=== PATIENT | male | born 1995 | race Caucasian/White ===

== ENCOUNTER 2018-01-13 12:10 | Inpatient (IN) | payer OTHER ==
[~2018-01-13] VITALS: Ht 172.7 cm; Wt 65.9 kg
[~2018-01-13 12:10] MED LIST: ATARAX,VISTARIL50 MG PO; CARBIDOPA/LEVOD1 TA1 PO; VITAMIN B-11 TAB PO; ZOFRAN 4 MG ED2 TAB PO
[2018-01-13 13:00] VITALS: BP 110/56
[2018-01-13 14:01] LABS: BASO % 0.7 % (0.0-1.0); EOS # 0.1 10*3/uL (0.0-0.4); EOS % 1.6 % (1.0-4.0); HEMATOCRIT 44.2 % (42.0-52.0); HEMOGLOBIN 14.9 g/dl (14.0-18.0); LYMPH # 1.2 10*3/uL (1.3-4.4); LYMPH % 20.4 % (27.0-41.0); MEAN CELL VOLUME 90.4 fl (80.0-94.0); MEAN CORPUSCULAR HGB 30.5 pg (27.0-31.0); MEAN CORPUSCULAR HGB CONC 33.7 g/dl (33.0-37.0); MEAN PLATELET VOLUME 11.5 fl (9.6-12.3); MONO # 0.3 10*3/uL (0.1-1.0); MONO % 4.9 % (3.0-9.0); NEUT # 4.4 10*3/uL (2.3-7.9); NEUT % 71.9 % (47.0-73.0); PLATELET COUNT AUTOMATED 193 10*3/uL (130-400); RED BLOOD COUNT 4.89 10*6/uL (4.50-5.90); RED CELL DISTRI WIDTH 12.1 % (0-14.5); WHITE BLOOD COUNT 6.1 10*3/uL (4.8-10.8)
[2018-01-13 14:06] LABS: URINE AMPHETAMINES < 1000 (1000ng/ml); URINE BARBITURATES < 200 (200ng/ml); URINE BENZODIAZEPINES < 200 (200ng/ml); URINE CANNABINOIDS (THC) < 50 (50ng/ml); URINE COCAINE > 300 (300ng/ml); URINE METHADONE < 300 (300ng/ml); URINE OPIATES > 300 (300ng/ml)
[2018-01-13 14:08] LABS: URINE PHENCYCLIDINE < 25 (25ng/ml)
[2018-01-13 14:11] LABS: ALBUMIN 4.4 gm/dl (3.1-4.5); ALKALINE PHOSPHATASE 79 U/L (45-117); BUN 9 mg/dl (7-24); CHLORIDE 106 mmol/L (98-107); POTASSIUM 3.8 mmol/L (3.5-5.1); SGOT/AST 28 IU/L (3-35); SGPT/ALT 59 U/L (12-78); SODIUM 141 mmol/L (136-145); TOTAL PROTEIN 8.8 gm/dL (6.4-8.2)
[2018-01-13 14:18] LABS: ETHYL ALCOHOL < 3.0 mg/dl (<3)
[2018-01-13 16:00] VITALS: BP 106/52
[2018-01-13 20:00] VITALS: BP 112/61
[2018-01-13 23:55] VITALS: BP 110/62
[2018-01-14 02:15] VITALS: BP 118/64
[2018-01-14 08:00] VITALS: BP 94/44
[2018-01-14 12:00] VITALS: BP 96/50
[2018-01-14 16:00] VITALS: BP 96/55
[2018-01-14 20:00] VITALS: BP 98/52
[2018-01-15] VITALS: BP 101/54
[2018-01-15 08:00] VITALS: BP 103/58
== END 2018-01-15 14:01 | disposition left against medical advice (07) | DRG 894 ==
LOC: 4E 12:10
PROVIDERS: Internal Medicine
DX: F11.23 Opioid dependence with withdrawal (principal); I95.9 Hypotension, unspecified; R17 Unspecified jaundice; R68.83 Chills (without fever); F10.230 Alcohol dependence with withdrawal, uncomplicated; F41.9 Anxiety disorder, unspecified; G25.81 Restless legs syndrome; Z71.6 Tobacco abuse counseling; Z72.0 Tobacco use; F14.10 Cocaine abuse, uncomplicated; B19.20 Unspecified viral hepatitis C without hepatic coma; F31.9 Bipolar disorder, unspecified; Z53.21 Procedure and treatment not carried out due to patient leaving prior to being seen by health care provider; Z79.899 Other long term (current) drug therapy; Z81.8 Family history of other mental and behavioral disorders

== ENCOUNTER 2019-04-13 08:51 | Inpatient (IN) | payer OTHER ==
[~2019-04-13] VITALS: Ht 172.7 cm; Wt 76.7 kg
[2019-04-13 10:00] VITALS: BP 116/74
[2019-04-13 10:34] LABS: URINE AMPHETAMINES < 1000 (1000ng/ml); URINE BARBITURATES < 200 (200ng/ml); URINE BENZODIAZEPINES < 200 (200ng/ml); URINE CANNABINOIDS (THC) < 50 (50ng/ml); URINE COCAINE < 300 (300ng/ml); URINE METHADONE < 300 (300ng/ml); URINE OPIATES < 300 (300ng/ml)
--- NOTE | 2019-04-13 10:36 | NUR ---
PATIENT MEETS [facility]. CINA=17, CIWA=21. PATIENT WANTS TO FOLLOW UP WITH [facility] FOR HIS AFTERCARE PLAN. JENARO WOODRUFF B.A. BACON SLICER
[2019-04-13 10:38] LABS: BILIRUBIN NEGATIVE (NEGATIVE); BLOOD NEGATIVE (NEGATIVE); CLARITY SL CLOUDY (CLEAR); COLOR YELLOW (YELLOW); GLUCOSE NEGATIVE (NEGATIVE); KETONE NEGATIVE (NEGATIVE); LEUKO ESTERASE NEGATIVE (NEGATIVE); NITRITE NEGATIVE (NEGATIVE); PH 8.5 (5.0-9.0); SPECIFIC GRAVITY 1.015 (1.005-1.030)
[2019-04-13 10:42] LABS: URINE PHENCYCLIDINE < 25 (25ng/ml)
[2019-04-13 11:03] LABS: MUCOUS 1+; WBC 0-2 wbc/hpf (0-5)
--- NOTE | 2019-04-13 11:08 | NUR ---
PT REQUESTING HIV TESTING
--- NOTE | 2019-04-13 11:23 | NUR ---
MESSAGE LEFT WIOTH DR MCKINNEY THAT PATIENT IS ADMITTED, MEDS DONE, URINE DRUG NEGATIVE
--- NOTE | 2019-04-13 11:59 | NUR ---
INFORMED THAT PATIENT IS REQUESTED ANXIETY MEDICATION AT THIS TIME.
[2019-04-13 12:00] VITALS: BP 120/62
--- NOTE | 2019-04-13 12:37 | NUR ---
EXPLAINED THAT FENTANYL WOULDN'T SHOW UP ON DRUG SCREEN AND THAT YES WE BELIEVED HE TOOK IT. EXPLAINED THAT DR HADDAD IS WORKING ON HIS ORDERS.
--- NOTE | 2019-04-13 12:50 | NUR ---
ROUTINE MEDS STARTED & PRN MOTRIN & ZOFRAN GIVEN. PT RESTLESS & FEELING LIKE HE COULDN'T TAKE IT ANY LONGER. DR HADDAD AWARE OF AMA POTENTIAL. DISCUSSED WITHPT MVI BAG
--- NOTE | 2019-04-13 13:15 | NUR ---
LABS DRAWN FROM HEP LOCK
[2019-04-13 13:26] LABS: BASO % 0.3 % (0.0-1.0); EOS % 0.7 % (1.0-4.0); HEMATOCRIT 43.4 % (42.0-52.0); HEMOGLOBIN 14.9 g/dl (14.0-18.0); LYMPH # 1.4 10*3/uL (1.3-4.4); LYMPH % 24.1 % (27.0-41.0); MEAN CELL VOLUME 90.4 fl (80.0-94.0); MEAN CORPUSCULAR HGB CONC 34.3 g/dl (33.0-37.0); MEAN PLATELET VOLUME 11.4 fl (9.6-12.3); MONO # 0.4 10*3/uL (0.1-1.0); MONO % 6.1 % (3.0-9.0); NEUT # 4.1 10*3/uL (2.3-7.9); NEUT % 68.8 % (47.0-73.0); PLATELET COUNT AUTOMATED 170 10*3/uL (130-400); RED CELL DISTRI WIDTH 12.9 % (0-14.5); WHITE BLOOD COUNT 5.9 10*3/uL (4.8-10.8)
[2019-04-13 13:36] LABS: INTERNATIONAL NORM RATIO 0.9 (2.0-3.5)
[2019-04-13 13:44] LABS: ALBUMIN 4.2 gm/dl (3.1-4.5); ALKALINE PHOSPHATASE 59 U/L (45-117); BUN 8 mg/dl (7-24); CHLORIDE 103 mmol/L (98-107); CREATININE 0.73 mg/dL (0.70-1.30); POTASSIUM 4.1 mmol/L (3.5-5.1); SGOT/AST 39 IU/L (3-35); SGPT/ALT 82 U/L (12-78); SODIUM 138 mmol/L (136-145); TOTAL PROTEIN 8.2 gm/dL (6.4-8.2)
[2019-04-13 13:47] LABS: ETHYL ALCOHOL < 3.0 mg/dl (<3)
--- NOTE | 2019-04-13 14:44 | NUR ---
VISTARIL GIVEN FOR CONTINUED ANXIETY AND RESTLESSNESS. Patient displaying withdrawal symptoms, including: irritability, anxiousness, restlessness and agitation, complicated by impulsive behavior. Patient scores a 6 on the withdrawal scale. Scheduled/PRN medications provided, doctor notified of patient's agitation and AMA potential. Will continue to monitor medication effectiveness.
[2019-04-13 16:00] VITALS: BP 119/71
--- NOTE | 2019-04-13 16:00 | NUR ---
MINIMAL EFFECT FROM VISTARIL - PER PT HE STILL CAN'T SLEEP & FEELS VERY ANXIOUS. FEELS TREMORS BUT NOT VISIBLE. ORDERED BUT UNABLE TO EAT 2ND TRAY. WATCHING TV
--- NOTE | 2019-04-13 17:15 | NUR ---
Patient displaying withdrawal symptoms, including: anxiousness, restlessness and agitation. Patient scores a 6 on the withdrawal scale. Scheduled LIBRIUM /PRN IV ATIVAN medications provided, doctor notified of patient's agitation and AMA potential. Will continue to monitor medication effectiveness.
--- NOTE | 2019-04-13 18:25 | NUR ---
Patient resting. Responding to scheduled medications with fewer complaints of pain and anxiety. S;EEPING - RESP EASY & NONLABORED - NO PERSPIRATION SEEN
--- NOTE | 2019-04-13 19:14 | NUR ---
PATIENT RESTING IN BED WITH EYES CLOSED. RESPS EASY AND REGULAR. ARROUSES EASILY. IV INFUSING PER ORDER. DENIES NEEDS AT THIS TIME. BED IN LOWEST POSITION, CALL LIGHT IN REACH
--- NOTE | 2019-04-13 20:45 | NUR ---
ORDER FOR REQUIP TAKEN AT THIS TIME FROM DR WESLEY
--- NOTE | 2019-04-13 21:05 | NUR ---
MEDICATED WITH PRN VISTARIL FOR ANXIOUSNESS,REQUIP FOR RESTLESS LEGS,ROBAXIN FOR MUSCLE ACHES, AND ZORFAN FOR NAUSEA. SUBUTEX DISSOLVED UNDER TONGUE PER ORDER. REMINDED TO NOT LEAVE THE FLOOR. VERBALIZED UNDERSTANDING
--- NOTE | 2019-04-13 22:05 | NUR ---
MEDICATIONS EFFECTIVE PER PATIENT
--- NOTE | 2019-04-13 22:59 | NUR ---
MEDICATED WITH PRN ATIVAN FOR TREMORS. WILL MONITOR
[2019-04-14] VITALS: BP 107/78
--- NOTE | 2019-04-14 | NUR ---
PATIENT RESTING IN BED WITH EYES CLOSED. RESPS EASY AND REGULAR. PRN ATIVAN SEEMS EFFECTIVE
[2019-04-14 04:00] VITALS: BP 110/57
--- NOTE | 2019-04-14 05:39 | NUR ---
MEDICATED WITH PRN ATIVAN FOR ANXIOUSNESS AND TREMORS, AND ROBAXIN FOR MUSCLE ACHES. WILL MONITOR
--- NOTE | 2019-04-14 07:18 | NUR ---
Shift chart check completed.
[2019-04-14 07:54] VITALS: BP 100/60
--- NOTE | 2019-04-14 07:58 | NUR ---
DR HADDAD ROUNDED - Patient displaying withdrawal symptoms, including: SHAKEINESS, anxiousness, AND FEELS BUT NOT SEEN TREMORS . Patient scores a 2 on the withdrawal scale. PRN medications VISTARIL, IBUPROFEN & ZOFRAN provided, doctor notified of patient's agitation and AMA potential. Will continue to monitor medication effectiveness.
--- NOTE | 2019-04-14 09:23 | NUR ---
Patient resting. Responding to scheduled medications with fewer complaints of pain and anxiety. AROUSES EASILY BUT HAVING A HARD TIME KEEPING EYES OPEN
[2019-04-14 12:00] VITALS: BP 110/55
--- NOTE | 2019-04-14 12:38 | NUR ---
Nutritional Support Services Note: Appetite is good for meals, he did have a decline of appetite and weight loss prior to admission. Opiod withdrawal, substance abuse. Regular diet as ordered is appropriate at this time. Will provice a night snack. Appetite improving. Nela Marquez Rdn Ld
--- NOTE | 2019-04-14 13:11 | NUR ---
PATIENT IS SCHEDULED TO GO TO [facility] ON ONCE HE IS DISCHARGED. PATIENT AGREES AND UNDERSTANDS HIS AFTERCARE PLAN. JENARO WOODRUFF B.A. DIRECTOR OF SUSTAINABLE DESIGN
--- NOTE | 2019-04-14 13:52 | NUR ---
Patient displaying withdrawal symptoms, including: R/O irritability, anxiousness, restlessness and TACHYCARDIA. Patient scores a 6 on the withdrawal scale. Scheduled/PRN medications provided, doctor notified of patient's agitation and AMA potential. Will continue to monitor medication effectiveness.
--- NOTE | 2019-04-14 14:20 | NUR ---
SLEEPING SINCE MEDICATED
[2019-04-14 16:00] VITALS: BP 108/60
--- NOTE | 2019-04-14 16:23 | NUR ---
PATIENT MEDICATED FOR C/O WITHDRAWAL SYMPTOMS, SEE EMAR. WILL MONITOR
--- NOTE | 2019-04-14 17:23 | NUR ---
PRN MEDS EFFCTIVE FOR WITHDRAWAL. PATIENT RESTING IN BED, NO DISTRESS NOTED. CALL LIGTH WITHIN REACH.
--- NOTE | 2019-04-14 18:51 | NUR ---
INFORMED THAT PATIENT IS EXTREMELY ANXIOUS/RESTLESS AND STATING HE IS WITHDRAWALING BAD. PATIENT IS COMING OUT OF ROOM STATED THAT HE NEEDS SOMETHING NOW. INFORMED THE PLACE ATIVAN 1MG IV X1 DOSE NOW
--- NOTE | 2019-04-14 18:58 | NUR ---
PATIENT GIVEN IV ATIVAN PER ORDERS AT THIS TIME. WILL MONITOR EFFECTIVENESS.
[2019-04-14 20:00] VITALS: BP 149/65
--- NOTE | 2019-04-14 20:00 | NUR ---
UPDATED ON PATIENT AND INFORMED ANOTHER DOSE OF IV ATIVAN WAS GIVEN D/T PATIENT STILL ACTIVELY D/T, HALLUCINATIONS OF SOMEONE IN THE ROOM WHEN NOBODY IS. STATED IF MEDS ARE NOT EFFECTIVE AND PATIENT CONTINUES TO HAVE SYMTPOMS TO CALL AND INFORM AND MEDS WILL BE RE-EVALUATED.
--- NOTE | 2019-04-14 20:57 | NUR ---
PATIENT MEDICATED WITH TRAZODOEN TI HELP WITH SLEEP. WILL MONITOR
--- NOTE | 2019-04-14 21:00 | NUR ---
ATIVAM EFFECTIVE PER PATIENT.
[2019-04-15] VITALS: BP 127/77
--- NOTE | 2019-04-15 00:49 | NUR ---
PATIENT MEDICATED WITH PRN AVAILABLE FOR WITHDRAWAL SYMPTOMS, SEE EMAR. WILL MONITOR
--- NOTE | 2019-04-15 03:46 | NUR ---
TOOK OVER CARE OF PT, PT LYING IN BED, EYES CLOSED, SLEEPING. RESPIRATIONS EASY AND UNLABORED ON ROOM AIR. NO S/S OF TREMORS. ALL SAFETY MEASURES IN PLACE. CALL LIGHT IN REACH.
[2019-04-15 08:47] VITALS: BP 96/50
--- NOTE | 2019-04-15 09:00 | NUR ---
ASSESSMENT COMPLETE AT THIS TIME OF PATIENT. PT SLEEPING, AROUSES TO VERBAL STIMULI BUT EYES CLOSE CONTINUOUSLY. PT APPEARS TO HAVE NO S/S OF DISTRESS AT THIS TIME BUT STATES THAT HE IS VERY ANXIOUS AND THAT ONLY ATIVAN IS HELPING WITH HIS SYMPTOMS. AFTER PATIENT SAYS THIS, HE FALLS ASLEEP. PATIENT HAS TO BE PROMPTED MULTIPLE TIMES TO AROUSE SO THAT ASSESSMENT CAN BE COMPLETED. BLOOD PRESSURE OBTAINED MANUALLY AND IS 96/50. WILL REASSESS PATIENT IN ONE HOUR TO EVALUATE S/S OF WITHDRAWAL. PT STATES THAT HE IS GOING TO ORDER BREAKFAST. ALL OTHER AM MEDICATIONS GIVEN AT THIS TIME. SAFETY MEASURES IN PLACE. CALL LIGHT IN REACH.
--- NOTE | 2019-04-15 11:20 | NUR ---
PT STATES THAT HE FEELS LIKE HE IS HAVING TREMORS DUE TO ALCOHOL WITHDRAWAL. PT STATES THAT HE FEELS VERY ANXIOUS. WHEN HOLDING OUT HANDS, FINE TREMORS ARE NOTICEABLE. BP OBTAINED AND WNL. 2 MG IV ATIVAN GIVEN AT THIS TIME. WILL MONITOR FOR EFFECTIVENESS. PT STATES THAT HE IS GOING TO ORDER LUNCH. WILL MONITOR FOR EFFECTIVENESS OF MEDICATION. CALL LIGHT IN REACH.
[2019-04-15 12:00] VITALS: BP 112/66
--- NOTE | 2019-04-15 12:20 | NUR ---
PT STATES THAT ATIVAN IS EFFECTIVE.
--- NOTE | 2019-04-15 12:46 | NUR ---
PATIENT IS SCHEDULED TO GO TO [facility] [place] FOR FOLLOWING DISCHARGE. PATIENT AGREES AND UNDERSTANDS HIS AFTERCARE PLAN. JENARO WOODRUFF B.A. OVEREDGER
--- NOTE | 2019-04-15 13:02 | NUR ---
PT C/O WITHDRAWAL S/S OF ALCOHOL AND HERION. PT STATES THAT THE PRN MEDICATIONS THAT HE IS RECEIVING IS NOT COVERING HIS SYMPTOMS. PT STATES THAT HE FEELS LIKE HE IS HAVING TREMORS AND IS UNABLE TO RELAX. AT THIS TIME PATIENT IS MEDICATED WITH BENTYL FOR STOMACH CRAMPS, ROBAXIN FOR MUSCLE ACHES, AND REQUIP FOR RESTLESS LEGS. PT MEDICATION SCHEDULE IS REVIEWED WITH PATIENT BUT PATIENT REQUESTS THAT THE DR BE CALLED IN ORDER TO INCREASE HIS MEDICATIONS. WILL ADDRESS THIS WITH THE PHYSICIAN.
--- NOTE | 2019-04-15 13:50 | NUR ---
PATIENT PUTS HUMAN RESOURCES PARTNER LIGHT AND STATES THAT HE HAS NOT HAD ANY MEDICATION AND THAT HE WOULD LIKE TO SEE HIS NURSE. UPON ENTERING ROOM, IT IS EXPLAINED TO THE PATIENT ALL MEDICATIONS THAT HE HAS RECEIVED TODAY AND HE IS GIVEN AN EXPLANATION OF THE MEDICATIONS THAT HE WILL RECEIVE FOR THE REST OF HIS STAY WHILE HE IS HERE. PATIENT STATES THAT HE WOULD LIKE TO SEE THE DOCTOR. DR HADDAD NOTIFIED AND ASKS NURSE TO CALL [facility] TO COME UP TO SEE PATIENT. WILL NOTIFY [facility].
--- NOTE | 2019-04-15 14:02 | NUR ---
PT CONTINUES TO STATE THAT PRN MEDICATIONS ROBAXIN, REQUIP, AND BENTYL ARE NOT EFFECTIVE FOR HIS S/S OF WITHDRAWAL. JENARO FROM [facility] IS ON FLOOR TO SPEAK WITH PATIENT. PHYSICIAN AWARE. WILL CONTINUE TO MONITOR.
--- NOTE | 2019-04-15 14:19 | NUR ---
PT GIVEN 50 MG VISTARIL AT THIS TIME FOR ANXIETY. PT IS PACING AROUND ROOM. PATIENT REMOVES HEALTH PHYSICS TECHNICIAN AND REFUSES TO WEAR IT. ASH HANDLER NOTIIFIED. WILL NOTIFY PHYSICIAN. WILL CONTINUE TO MONITOR PATIENT. JENARO FROM [facility] STILL ON FLOOR AND STILL TALKING WITH PATIENT.
--- NOTE | 2019-04-15 14:27 | NUR ---
NOTIFIED DR HADDAD THAT PATIENT IS INSISTING TO TALK TO HIM REGARDING HIS MEDICATIONS. PHYSICIAN STATES THAT HE WILL BE UP TO FLOOR TO SEE PATIENT.
--- NOTE | 2019-04-15 14:33 | NUR ---
PATIENT GIVEN TYLENOL 500 MG PO FOR C/O TOOTH PAIN. WILL MONITOR FOR EFFECTIVENESS. PT STILL REFUSING TO PUT ANGULAR JS DEVELOPER ON AND STATES THAT HE WILL PUT IT ON WHEN HIS WITHDRAWAL S/S GO AWAY.
[2019-04-15 16:00] VITALS: BP 122/63
--- NOTE | 2019-04-15 16:45 | NUR ---
PT GIVEN 1 MG ATIVAN VIA IV AT THIS TIME FOR C/O WITHDRAWAL S/S. WILL MONITOR FOR EFFECTIVENESS. PT LYING IN BED, SAFETY MEASURES IN PLACE. CALL LIGHT IN REACH.
--- NOTE | 2019-04-15 19:00 | NUR ---
ARRIVED ON SHIFT, INTRODUCED TO PATIENT, RECEIVED BEDSIDE REPORT, WHITE BOARD UPDATED, NO NEEDS VOICED AT THIS TIME. REINFORCED NOT LEAVING FLOOR, AND CALL LIGHT USE. VERBALIZED UNDERSTANDING.
[2019-04-15 20:00] VITALS: BP 106/55
--- NOTE | 2019-04-15 20:25 | NUR ---
PATIENT C/O OF FEELING ANXIOUS, MEDICATED WITH LORAZEPAM ORDERED PRN
--- NOTE | 2019-04-15 21:25 | NUR ---
MINIMAL EFFECT FROM LORAZEPAM GIVEN X 1 HOUR AGO, REQUESTED SOMETHING FOR SLEEP AND MUSCLE ACHES.
--- NOTE | 2019-04-15 21:32 | NUR ---
MEDICATED WITH TRAZADONE AND ROBAXIN ORDERED FOR MUSCLE ACHES AND INSOMNIA.
--- NOTE | 2019-04-15 22:13 | NUR ---
24 HR chart check completed.
--- NOTE | 2019-04-15 22:32 | NUR ---
GOOD EFFECT OF TRAZADONE AND ROBAXIN PATIENT RESTING QUIETLY WITH EYES CLOSED, WITHOUT S/S OF DISTRESS NOTED.
[2019-04-16] VITALS: BP 111/53
--- NOTE | 2019-04-16 05:32 | NUR ---
Patient sleeping. Respirations relaxed and easy. Siderails up 2. [place] on. ABHI BLEVINS
[2019-04-16 06:34] LABS: BASO % 0.3 % (0.0-1.0); EOS # 0.3 10*3/uL (0.0-0.4); EOS % 3.8 % (1.0-4.0); HEMATOCRIT 43.2 % (42.0-52.0); HEMOGLOBIN 14.8 g/dl (14.0-18.0); LYMPH # 2.6 10*3/uL (1.3-4.4); LYMPH % 39.9 % (27.0-41.0); MEAN CORPUSCULAR HGB 30.8 pg (27.0-31.0); MEAN CORPUSCULAR HGB CONC 34.3 g/dl (33.0-37.0); MEAN PLATELET VOLUME 11.7 fl (9.6-12.3); MONO # 0.5 10*3/uL (0.1-1.0); MONO % 7.4 % (3.0-9.0); NEUT # 3.2 10*3/uL (2.3-7.9); NEUT % 48.4 % (47.0-73.0); PLATELET COUNT AUTOMATED 163 10*3/uL (130-400); RED CELL DISTRI WIDTH 13.2 % (0-14.5); WHITE BLOOD COUNT 6.5 10*3/uL (4.8-10.8)
--- NOTE | 2019-04-16 06:43 | NUR ---
PATIENT C/O FEELING ANXIOUS ATIVAN 1MG GIVEN, REQUESTS NOT TO BE AWAKENED FOR SHIFT REPORT.
[2019-04-16 07:03] LABS: CREATININE 0.82 mg/dL (0.70-1.30)
[2019-04-16] MEDS ORDERED: DICYCLOMINE HCL20 MG PO (07:55)
[2019-04-16] MEDS ORDERED: TRAZODONE50 MG PO (07:55)
[2019-04-16] MEDS ORDERED: METHOCARBAMOL750 M1 PO (07:55)
[2019-04-16] MEDS ORDERED: ATARAX,VISTARIL50 MG PO (07:55)
[2019-04-16] MEDS ORDERED: ROPINIROLE HYD0.5 MG PO (07:55)
--- NOTE | 2019-04-16 08:21 | NUR ---
24 HR chart check completed.
--- NOTE | 2019-04-16 08:24 | NUR ---
TOOK OVER CARE OF PT. PT RESTING IN BED, SLEEPING. EASILY AROUSED TO VERBAL STIMULI. ASSESSMENT COMPLETE. PT DENIES ANY S/S OF WITHDRAWAL AND DENIES NEEDING ANYTHING AT THIS TIME. BP WNL. ASSESSMENT NEGATIVE FOR ANY ABNORMALITIES. PT REFUSING ELECTRONIC WARFARE SPECIALIST AT THIS TIME. PT FALLS ASLEEP QUICKLY AFTER ASSESSMENT. SAFETY MEASURES IN PLACE. CALL LIGHT IN REACH.
[2019-04-16 08:26] VITALS: BP 112/60
--- NOTE | 2019-04-16 09:00 | NUR ---
DISHCARGE PAPERWORK TAKEN INTO PATIENT AT THIS TIME. PT STATES THAT HE IS UNABLE TO BE DISCHARGED DUE TO NOT HAVING A RIDE AND BECAUSE HE IS STILL EXPERIENCING WITHDRAWAL SYMPTOMS. WHEN ASKED IF HE TOLD THE DR ABOUT THIS WHEN HE ROUNDED THIS MORNING, PATIENT STATES THAT HE DID NOT. PT STATES THAT THE DR TOLD HIM THAT HE CAN HAVE AN ADDITIONAL DOSE OF IV ATIVAN BEFORE HE IS DISCHARGED AND STATES THAT HE NEEDS TO FIND A RIDE HOME. PT IS BECOMING VISIBLY UPSET AND AGITATED, STATING THAT HE NEEDS TO SPEAK TO A PHYSICIAN. WILL NOTIFY PHYSICIAN AND COME BACK AT A LATER TIME.
--- NOTE | 2019-04-16 09:15 | NUR ---
DR WINN, RESIDENT WORKING WITH DR HADDAD, NOTIFIED THAT PT IS ASKING TO SPEAK WITH A
--- NOTE | 2019-04-16 09:30 | NUR ---
DR HADDAD NOTIFIES THIS NURSE THAT PATIENT IS TO BE GIVEN HIS DISCHARGE PAPERWORK AND IF HE GIVES ANY PROBLEMS ABOUT BEING DISCHARGE, SECURITY IS TO BE CALLED TO ESCORT HIM OUT.
--- NOTE | 2019-04-16 09:50 | NUR ---
Discharge instructions reviewed with patient/family. Patient receptive and verbalizes understanding. Follow-up care arranged. Written instructions given to patient/family. JOSÉ ACOSTA
== END 2019-04-16 10:33 | disposition home or self-care (01) | DRG 897 ==
LOC: 5E 08:51
PROVIDERS: Internal Medicine; ADMIT Family Medicine
DX: F11.23 Opioid dependence with withdrawal (principal); F31.0 Bipolar disorder, current episode hypomanic; F17.210 Nicotine dependence, cigarettes, uncomplicated; F14.10 Cocaine abuse, uncomplicated; F10.230 Alcohol dependence with withdrawal, uncomplicated; R74.0 Nonspecific elevation of levels of transaminase and lactic acid dehydrogenase [LDH]; G25.81 Restless legs syndrome; B18.2 Chronic viral hepatitis C; R68.83 Chills (without fever); Z71.6 Tobacco abuse counseling; Z86.14 Personal history of Methicillin resistant Staphylococcus aureus infection; Z80.1 Family history of malignant neoplasm of trachea, bronchus and lung; Z83.3 Family history of diabetes mellitus; Z81.8 Family history of other mental and behavioral disorders

== ENCOUNTER 2019-07-05 11:13 | Inpatient (IN) | payer OTHER ==
[~2019-07-05] VITALS: Ht 172.7 cm; Wt 74.9 kg
[~2019-07-05 11:13] MED LIST changes: +DICYCLOMINE HCL20 MG PO; +METHOCARBAMOL750 M1 PO; +ROPINIROLE HYD0.5 MG PO; +TRAZODONE50 MG PO
[2019-07-05 12:00] VITALS: BP 133/79
--- NOTE | 2019-07-05 12:19 | NUR ---
PATIENT MEETS [facility]. CINA=20,CIWA=19. PATIENT WANTS TO FOLLOW UP WITH [facility] FOR HIS AFTERCARE PLAN. JENARO WOODRUFF B.A. PIGEON FANCIER
--- NOTE | 2019-07-05 12:22 | NUR ---
A 24, admitted to 5E, under the services of ALECIA Blanco DO with a diagnosis of OPIATE WITHDRAWAL. Chief complaint is OPIATE WITHDRAWAL. Patient arrived via ambulatory from [place]. Monitor applied. Initial assessment completed. Vital signs taken and recorded. ALECIA BLANCO DO notified of admission to the unit. Orders received. See assessment for past medical history, medications and allergies. Patient and/or family oriented to unit. [address] visitation policy reviewed. Clothing/patient valuable form completed. JEANNE GUTIERREZ
--- NOTE | 2019-07-05 12:23 | NUR ---
PATIENT STATES HE DOES NOT TAKE ANY HOME MEDICATIONS.
[2019-07-05 12:30] VITALS: BP 133/79
[2019-07-05 13:05] LABS: BASO % 0.1 % (0.0-1.0); EOS % 0.4 % (1.0-4.0); HEMATOCRIT 40.4 % (42.0-52.0); HEMOGLOBIN 13.7 g/dl (14.0-18.0); LYMPH # 1.2 10*3/uL (1.3-4.4); LYMPH % 16.9 % (27.0-41.0); MEAN CELL VOLUME 90.2 fl (80.0-94.0); MEAN CORPUSCULAR HGB 30.6 pg (27.0-31.0); MEAN CORPUSCULAR HGB CONC 33.9 g/dl (33.0-37.0); MONO # 0.3 10*3/uL (0.1-1.0); MONO % 3.7 % (3.0-9.0); NEUT # 5.3 10*3/uL (2.3-7.9); NEUT % 78.8 % (47.0-73.0); PLATELET COUNT AUTOMATED 197 10*3/uL (130-400); RED BLOOD COUNT 4.48 10*6/uL (4.50-5.90); WHITE BLOOD COUNT 6.8 10*3/uL (4.8-10.8)
--- NOTE | 2019-07-05 13:12 | NUR ---
4 MG SUBUTEXT AND 4 MG ZOFRAN GIVEN PER PHYSICIAN ORDER.
[2019-07-05 13:16] LABS: INTERNATIONAL NORM RATIO 0.9 (2.0-3.5)
[2019-07-05 13:20] LABS: ALBUMIN 3.9 gm/dl (3.1-4.5); ALKALINE PHOSPHATASE 68 U/L (45-117); BUN 7 mg/dl (7-24); CHLORIDE 105 mmol/L (98-107); CREATININE 0.84 mg/dL (0.70-1.30); SGOT/AST 29 IU/L (3-35); SGPT/ALT 75 U/L (12-78); SODIUM 138 mmol/L (136-145)
[2019-07-05 13:25] LABS: BETA-HCG, QUANT < 1.0 mIU/mL (<1); ETHYL ALCOHOL < 3.0 mg/dl (<3)
[2019-07-05 13:28] LABS: BILIRUBIN NEGATIVE (NEGATIVE); BLOOD NEGATIVE (NEGATIVE); CLARITY CLEAR (CLEAR); COLOR YELLOW (YELLOW); GLUCOSE NEGATIVE (NEGATIVE); KETONE NEGATIVE (NEGATIVE); LEUKO ESTERASE NEGATIVE (NEGATIVE); NITRITE NEGATIVE (NEGATIVE); SPECIFIC GRAVITY 1.015 (1.005-1.030); UROBILINOGEN 0.2 E.U./dl (0.2-1.0)
[2019-07-05 13:30] LABS: TOTAL PROTEIN 8.2 gm/dL (6.4-8.2)
[2019-07-05 13:36] LABS: URINE AMPHETAMINES < 1000 (1000ng/ml); URINE BARBITURATES < 200 (200ng/ml); URINE BENZODIAZEPINES < 200 (200ng/ml); URINE CANNABINOIDS (THC) < 50 (50ng/ml); URINE COCAINE < 300 (300ng/ml); URINE METHADONE < 300 (300ng/ml); URINE OPIATES < 300 (300ng/ml)
[2019-07-05 13:37] LABS: URINE PHENCYCLIDINE < 25 (25ng/ml)
[2019-07-05 13:44] LABS: EPITHELIAL CELLS 0-2
--- NOTE | 2019-07-05 13:48 | NUR ---
PATIENT ANXIOUS. ATIVAN PO GIVEN PER PATIENT REQUEST. WILL ASSESS EFFECTIVENESS.
--- NOTE | 2019-07-05 14:04 | NUR ---
PATIENT COMPLAINED OF MUSCLE SPASMS AND ANXIETY. ROBAXIN AND VISTARIL GIVEN PER PATIENT REQUEST. WILL ASSESS EFFECTIVENESS.
--- NOTE | 2019-07-05 14:40 | NUR ---
ATIVAN NOT EFFECTIVE PER PATIENT. WILL CONTINUE TO MONITOR.
--- NOTE | 2019-07-05 15:00 | NUR ---
ROBAXIN AND VISTARIL SLIGHTLY EFFECTIVE. PATIENT IS SLIGHTLY RESTLESS AND ANXIOUS. WILL CONTINUE TO MONITOR.
--- NOTE | 2019-07-05 15:41 | NUR ---
PATIENT REQUESTED SOMETHING FOR FEELING ANXIOUS AND RESTLESS. SPOKE WITH DR OCAMPO REGARDING SCHEDULED DOES OF ATIVAN VERSUS PRN. SHE STATED TO GO AHEAD AND GIVE IV ATIVAN NOW AND SCHEDULED DOSE OF PO ATIVAN AT THE REGULAR SCHEDULED TIME OF 1600. IV ATIVAN GIVEN NOW PER PATIENT REQUEST. WILL ASSESS EFFECTIVENESS.
[2019-07-05 16:00] VITALS: BP 109/72
--- NOTE | 2019-07-05 16:03 | NUR ---
PATIENT COMPLAINED OF RESTLESS LEGS. REQUIP GIVEN PER PATIENT REQUEST. WILL ASSESS EFFECTIVENESS.
--- NOTE | 2019-07-05 16:15 | NUR ---
IV ATIVAN EFFECTIVE PER PATIENT. PATIENT STATED IT HELPED HIM TO CALM DOWN AND NOT FEEL RESTLESS AND SHAKY. WILL CONTINUE TO MONITOR.
--- NOTE | 2019-07-05 17:00 | NUR ---
REQUIP SLIGHTLY EFFECTIVE PER PATIENT. WILL CONTINUE TO MONITOR.
--- NOTE | 2019-07-05 18:12 | NUR ---
Patient resting quietly with no c/o discomfort. Respirations easy and regular. Vital signs stable. No overt distress. JEANNE GUTIERREZ
--- NOTE | 2019-07-05 18:25 | NUR ---
PATIENT COMPLAINED OF FEELING RESTLESS STILL. BENADRYL GIVEN PER PATIENT REQUEST. WILL ASSESS EFFECTIVENESS.
--- NOTE | 2019-07-05 19:20 | NUR ---
BENADRYL NOT EFFECTIVE PER PATIENT. I WILL CONTINUE TO MONITOR THE PATIENT.
--- NOTE | 2019-07-05 19:34 | NUR ---
ATIVAN IV GIVEN PER PATIENT REQUEST. PATIENT IS ANXIOUS AND NOT ABLE TO FALL ASLEEP OR SIT STILL. WILL ASSESS EFFECTIVENESS.
[2019-07-05 20:00] VITALS: BP 95/59
--- NOTE | 2019-07-05 21:15 | NUR ---
ATIVAN GIVEN PER PATIENT REQUEST FOR COMPLAINTS OF ANXIETY. WILL ASSESS EFFECTIVENESS.
--- NOTE | 2019-07-05 23:18 | NUR ---
REPEAT OF TRAZADONE GIVEN PER PT REQUEST
[2019-07-06] VITALS: BP 160/81
--- NOTE | 2019-07-06 03:23 | NUR ---
24 HR chart check completed.
--- NOTE | 2019-07-06 05:56 | NUR ---
PT AGITATED/ANXIOUS [id number] PRN GIVEN
[2019-07-06 08:00] VITALS: BP 111/63
--- NOTE | 2019-07-06 08:58 | NUR ---
PT GIVEN ROBAXIN, REQUIP, AND ZOFRAN FOR C/O MUSCLE ACHES, RESTLESS LEGS, AND NAUSEA. ASSESSMENT COMPLETE. ALL OTHER SCHEDULED MEDICATIONS ARE GIVEN AT THIS TIME. CALL LIGHT IN REACH.
--- NOTE | 2019-07-06 10:06 | NUR ---
PT STATES THAT HE IS CONTINUING TO HAVE WITHDRAWAL S/S DESPITE PRN AND SCHEDULED MEDICATIONS THAT ARE GIVEN. 1 MG ATIVAN VIA IV GIVEN AT THIS TIME. WILL MONITOR. CALL LIGHT IN REACH.
--- NOTE | 2019-07-06 11:01 | NUR ---
ATIVAN APPEARS EFFECTIVE. PT IS RESTING IN BED. RESPIRATIONS EASY AND UNLABORED.
--- NOTE | 2019-07-06 12:28 | NUR ---
PT GIVEN 1 MG IV ATIVAN AT THIS TIME, WILL MONITOR FOR EFFECTIVENESS. PT STATES THAT HE DOES NOT FEEL THAT THE PRN MEDICATIONS ARE HELPING WITH HIS WITHDRAWAL SYMPTOMS. PT IS ASKING TO SEE SUPERVISORY IT SPECIALIST.
--- NOTE | 2019-07-06 12:55 | NUR ---
NV STAFF IN TO SPEAK WITH PATIENT. PATIENT IS TALKING ABOUT LEAVING AMA DUE TO REPORTING PROGRESSIVE SICKNESS. NV STAFF ENCOURAGE PATIENT TO FINISH SERVICE. NV STAFF LEFT MESSAGE WITH FLOOR ON PATIENT'S CONCERNS. NV STAFF WILL FOLLOW BACK UP WITH PATIENT. JENARO WOODRUFF B.A. OIL FIELD PIPELINE SUPERVISOR
[2019-07-06 13:05] VITALS: BP 111/70
--- NOTE | 2019-07-06 13:05 | NUR ---
ARRIVED VIA BED FROM 5E, ANXIOUS, RESTLESS. IV SITE IS RED.REPORT FROM JOSÉ.
--- NOTE | 2019-07-06 14:05 | NUR ---
ULTRASOUND GUIDED ACCUCATH PLACED LEFT UPPER ARM ON 3RD ATTEMPT. PT HAS BEEN GIVEN 1MG IV ATIVAN AND HIS SCHEDULED SUBUTEX. ATTEMPTED TO GET HIM TO A COMFORTABLE POSITION.
--- NOTE | 2019-07-06 14:42 | NUR ---
PT IS CURRENTLY SLEEPING ON HIS RIGHT SIDE SINCE EARLIER ATIVAN.
--- NOTE | 2019-07-06 15:36 | NUR ---
MEDICATED WITH ROBAXIN FOR MUSCLE ACHES, BENTYL FOR CRAMPING, VISTARIL AND IV ATIVAN 1MG FOR ANXIETY PER HIS REQUEST FOR "MY ATIVAN AND ANYTHING ELSE I CAN HAVE".
--- NOTE | 2019-07-06 15:55 | NUR ---
WITHIN 30 MINUTES OF THE IV ATIVAN HE JUMPED OUT OF BED, ASKING TO USE THE TELEPHONE.
[2019-07-06 16:00] VITALS: BP 101/57
--- NOTE | 2019-07-06 16:32 | NUR ---
IV ATIVAN 1MG PER PT REQUEST. NO SEIZURE ACTIVITY.
--- NOTE | 2019-07-06 17:20 | NUR ---
IV ATIVAN 1MG PER HIS REQUEST AND HIS SCHEDULED ORAL DOSE OF ATIVAN GIVEN. PT OFFERED TO ORDER DINNER BUT HE DECLINES AT THIS TIME.
--- NOTE | 2019-07-06 17:44 | NUR ---
PT JUMPED OUT OF BED, ANXIOUS, SAYING "I NEED SOMETHING ELSE OR I'M GOING TO HAVE GO GET A DRINK". "I'M STARTING TO SEE SPOTS". IV BENADRYL 25MG GIVEN FOR ANXIETY NOT RELIEVED BY THE EARLIER VISTARIL, ROBAXIN, BENTYL AND ATIVAN DOSES.
--- NOTE | 2019-07-06 17:47 | NUR ---
PT SAYS "DO I HAVE DOGS HERE?". ENCOURAGED TO LIE BACK AND RELAX. BED IS IN LOW POSITION WITH WHEELS LOCKED. HE'S IN DIRECT LINE OF SIGHT.
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
--- NOTE | 2019-07-06 18:20 | NUR ---
DR MORTON NOTIFIED THAT PT AGITATED AND WANTING TO LEAVE. DR NGUYEN CALLED ME AND ASKED ME TO GIVE IT EVERY 15 MINUTES.
--- NOTE | 2019-07-06 18:33 | NUR ---
1MG GIVEN AT 1818 AND ONE TIME DOSE OF 2MG IV GIVEN AT 183. DR MORTON HERE. NOW DR WESLEY AND PAWEL HERE AT BEDSIDE. PT CLAIMS TO BE "SEEING THINGS"
--- NOTE | 2019-07-06 18:48 | NUR ---
ATIVAN 1MG IV REPEATED. PT ENCOURAGED TO REST AND EAT.
--- NOTE | 2019-07-06 19:04 | NUR ---
IV ATIVAN 1MG REPEATED PT SAYS "I CAN'T SLEEP".
--- NOTE | 2019-07-06 19:33 | NUR ---
1920 REMAINS RESTLESS, OOB. ATIVAN 1MG IV GIVEN ORDERED. 1932 OOB AGAIN. STATES " I CAN'T DO THIS. I NEED LIBRIUM". DR. BABCOCK CALLED. ORDERS RECEIVED.
[2019-07-06 20:00] VITALS: BP 104/51
--- NOTE | 2019-07-06 20:30 | NUR ---
Pt intubated with a 7.5 tube at 25cm at the lip. Pts initial settings are AC - RR 14 - VT 500 - FiO2 40%. HR 115 SpO2 97% No comps with intubation. Bilateral breath sounds. Alarms on and audible on ventilator. Headgear secure.
--- NOTE | 2019-07-06 20:54 | NUR ---
1941 ATIVAN 2MG IV GIVEN PER ORDER FOR CONT AGITATIION. 1952 PHENABARB GIVEN ORDERED OVER 5 MINUTES. CONT PULSE OX APPLIED. 97% ON RA. 90% AFTER PHENABARB GIVEN. NASAL 02 APPLIED AT 2L. PT REMAINS RESTLESS. HALLUCINTATING. DISORIENTED TO PLACE AND TIME. RN SITTING AT BEDSIDE TO KEEP PT IN BED. BED ALARM INTACT. DR. MCKINNEY HERE. CONT TO TRY TO GET OOB. STATES "I NEED TO GET MY KIDS". 2016 PT OOB QUICKLY PAST RN. VERY UNSTEADY. DR. MCKINNEY TO BEDSIDE. PT WILL NOT STAY IN THE BED. MULTIPLE STAFF MEMBERS AT THE BEDSIDE 2019. CODE MAGDALENO CALLED. SECURITY HERE. PT THRASHING ABOUT IN THE BED WRIST RESTRAINTS APPLIED. DR. BABCOCK HERE. PROPOFOL GIVEN ACCUCATH ANJELICA PER DR. BABCOCK. IV SITE IS POSITIONAL. PT BEING BAGGED PER RESPIRATORY THERAPY. [address] BABCOCK WITH # 7.5 ET. 24 AT THE LIP.TOLERATED FAIR. REMAINED VERY RESTLESS. RSI KIT USED. SEE EMAR. 2039 #18 OGT INSERTED AND CLAMPED. TOLERATED FAIR. # 16 BAINS CATH INSERTED UNDER STERILE TECHNIQUE. IMMEDIATE RETURN OF CLEAR YELLOW URINE. 2099 PORTABLE CXR DONE FOR OGT AND ET PLACEMENT. DR. BABCOCK HERE TO VIEW FILM. IV SITE STARTED ANJELICA WITH #22 ANGIO AFTER ROUTINE PREP. DRSG TO SITE AND FLUSHED.
--- NOTE | 2019-07-06 21:15 | NUR ---
GRANDMOTHER, SANCHEZ TAMAYO, CALLED TO UPDATE HER ON PT( HER NAME IS ON THE KARDEX). SHE IS TO CALL HIS MOTHER. PERMISSION GIVEN FOR MLC.
--- NOTE | 2019-07-06 21:29 | NUR ---
2129 MOM CALLED IN AND UPDATED ON PT CONDITION. STATES " I WILL CALL TO CHECK ON HIM TOMORROW".
--- NOTE | 2019-07-06 21:30 | NUR ---
DR. BABCOCK AND DR. CABRAL ATTEMPTING TO INSERT RIJ MLC AT BEDSIDE. PT REMAINS ADEQUATELY SEDATED ON DIPRIVAN GTT. PULSE OX 97% ON 40% FIO2 VIA VENT. BP STABLE AT 123/54. MONITOR NSR IN THE 90'S.
[2019-07-06 22:00] VITALS: BP 100/47
[2019-07-06 22:22] LABS: ABG BASE EXCESS 3.1 mmol/L (-2.0-2.0); ARTERIAL BLOOD GAS PH 7.421 (7.35-7.45)
--- NOTE | 2019-07-06 22:44 | NUR ---
2144 RIJ INSERTED AND DRSG APPLIED. CXR DONE AND PLACEMENT CONFIRMED. 2229 PT DAD HERE AND UPDATED ON PT CONDITION. ABG'S DONE EARLIER PER MED STUDENT. RESULTS OBTAINED PER DR. BABCOCK. DR. DOWNEY TO BE CONSULTED.
--- NOTE | 2019-07-06 22:59 | NUR ---
RESTING IN BED WITH HOB ELEVATED. SIDE RAILS UP X'S 2. WRIST RESTRAINTS INTACT BILATERALLY, CIRCULATION ADEQUATE. PULSE OX 98% ON 40% FIO2 VIA VENT. ET SECURE TO VENT. OGT INTACT AND CLAMPED. PLACEMENT CONFIRMED WITH AIR BOLUS/AUSCULTATION/CXR. ACCUCATH INTACT JOSSUE. HEP LOCK INTACT ANJELICA. RIJ INTACT WITH DIPRIVAN GTT AT 50MICS. BAINS PATENT AND DRAINING CLEAR YELLOW URINE.
[2019-07-07] VITALS (12 sets, daily range): BP systolic 87–117; BP diastolic 34–77
--- NOTE | 2019-07-07 00:34 | NUR ---
07/06/19 2335 VERSED 5MG IV FOR AGITATION AND IMMEDIATELY EFFECTIVE.
--- NOTE | 2019-07-07 02:07 | NUR ---
0200 VERSED MG IV FOR AGITATION AND EFFECTIVE. DIPRIVAN CONT AT 40MICS
--- NOTE | 2019-07-07 03:48 | NUR ---
0325 MEDICATED FOR RESTLESSNESS. COMPLETE BATH GIVEN AND LINENS CHANGED. 0348 EARLIER MEDS EFFECTIVE.
[2019-07-07 04:17] LABS: BASO % 0.2 % (0.0-1.0); EOS # 0.1 10*3/uL (0.0-0.4); EOS % 1.5 % (1.0-4.0); HEMATOCRIT 39.5 % (42.0-52.0); HEMOGLOBIN 13.3 g/dl (14.0-18.0); LYMPH # 2.2 10*3/uL (1.3-4.4); LYMPH % 26.8 % (27.0-41.0); MEAN CELL VOLUME 90.8 fl (80.0-94.0); MEAN CORPUSCULAR HGB 30.6 pg (27.0-31.0); MEAN CORPUSCULAR HGB CONC 33.7 g/dl (33.0-37.0); MEAN PLATELET VOLUME 10.9 fl (9.6-12.3); MONO # 0.6 10*3/uL (0.1-1.0); MONO % 7.7 % (3.0-9.0); NEUT # 5.2 10*3/uL (2.3-7.9); NEUT % 63.6 % (47.0-73.0); PLATELET COUNT AUTOMATED 211 10*3/uL (130-400); RED BLOOD COUNT 4.35 10*6/uL (4.50-5.90); WHITE BLOOD COUNT 8.2 10*3/uL (4.8-10.8)
[2019-07-07 04:36] LABS: ALBUMIN 3.7 gm/dl (3.1-4.5); BUN 14 mg/dl (7-24); CHLORIDE 108 mmol/L (98-107); CREATININE 1.02 mg/dL (0.70-1.30); PHOSPHOROUS 3.6 mg/dL (2.5-4.9); POTASSIUM 3.5 mmol/L (3.5-5.1); SGOT/AST 30 IU/L (3-35); SGPT/ALT 60 U/L (12-78); SODIUM 140 mmol/L (136-145)
[2019-07-07 04:37] LABS: ALKALINE PHOSPHATASE 58 U/L (45-117); TOTAL PROTEIN 7.5 gm/dL (6.4-8.2)
--- NOTE | 2019-07-07 06:12 | NUR ---
0530 ROUTINE SUBUTEX AND ATIVAN GIVEN VIA OGT. ET SECURE TO VENT. PULSE OX 99%. NO DISTRESS NOTED. REMAINS ADEQUATELY SEDATED ON DIPRIVAN GTT. WRIST RESTRAINTS INTACT BILATERALLY. CIRCULATION ADEQUATE. BAINS PATENT. CONDITION GUARDED.
--- NOTE | 2019-07-07 06:51 | NUR ---
PORTABLE CXR DONE ORDERED. PT IS RESTLESS. VERSED IV FOR THIS AND EFFECTIVE. RESPIRATORY THERAPY HERE TO DO ABG'S. VASYL CALL WITH CONSULT AND RESULTS
[2019-07-07 07:02] LABS: ABG BASE EXCESS 2.5 mmol/L (-2.0-2.0); ARTERIAL BLOOD GAS PH 7.431 (7.35-7.45)
--- NOTE | 2019-07-07 07:20 | NUR ---
CALLED AND INFORMED OF CONSULT AND AM ABG RESULTS. NO NEW ORDERES RECEIVED.
--- NOTE | 2019-07-07 07:45 | NUR ---
PATIENT VERY RESTLESS. PULLING AT SOFT WRIST RESTRAINTS. ATTEMPTING TO SIT UP. DIPRIVAN GTT INFUSING 40MIC VIA RIJ MLC. POX 97% ON 30% FIO2 VIA VENT.RATE 14 TV 500 PEEP 5. RHONCHI NOTED THROUGHOUT. BAINS PATENT AND DRAINING GREEN URINE WITH SEDIMENT NOTED. SUCTIONED FOR SMALL AMOUNT CLEAR SPUTUM THROUGH ETT. MEDICATED WITH ATIVAN PER PRN ORDER.
--- NOTE | 2019-07-07 09:57 | NUR ---
PATIENT VERY RESTLESS. MEDICATED WITH ATIVAN PER PRN ORDER. WILL CONTINUE TO MONITOR.
--- NOTE | 2019-07-07 10:12 | NUR ---
PATIENT CONTINUING TO SIT UP AND PULL AT WRIST RESTRAINTS. CLENCHING FISTS. MEDICATED WITH VERSED PER PRN ORDER.
--- NOTE | 2019-07-07 11:53 | NUR ---
PATIENT VERY RESTLESS AND AGITATED. CLENCHING FISTS. ATTEMPTING TO SIT UP. MEDICATED WITH ATIVAN 1MG IV PER PRN ORDER.
--- NOTE | 2019-07-07 12:21 | NUR ---
PATIENT CONTINUES TO SIT UP AND PULL AT WRIST RESTRAINTS. MEDICATED WITH VERSED PER PRN ORDER AND IMMEDIATELY EFFECTIVE.
--- NOTE | 2019-07-07 13:55 | NUR ---
PATIENT VERY RESTLESS ATTEMPTING TO SIT UP OVER SIDERAILS. MEDICATED WITH VERSED PER PRN ORDER AND IMMEDIATELY EFFECTIVE.
--- NOTE | 2019-07-07 14:39 | NUR ---
MEDICATED WITH ATIVAN 1MG IV PER PRN ORDER FOR CONTINUED RESTLESSNESS/AGITATION.
--- NOTE | 2019-07-07 15:52 | NUR ---
PATIENT THRASHING HEAD UP AND DOWN. PULLING AT RESTRAINTS. CLENCHING FISTS. MEDICATED WITH VERSED PER PRN ORDER.
--- NOTE | 2019-07-07 16:23 | NUR ---
TEMPERATURE 101/T. MEDICATED WITH TYLENOL PER PRN ORDER.
--- NOTE | 2019-07-07 16:40 | NUR ---
MEDICATED WITH ATIVAN PER PRN ORDER FOR CONTINUED RESTLESSNESS.
--- NOTE | 2019-07-07 18:02 | NUR ---
MEDICATED PT PER PRN ORDER WITH VERSED FOR PT'S AGITATION.
--- NOTE | 2019-07-07 18:27 | NUR ---
PT REMAINS RESTLESS. MEDICATED PT PRN WITH IV ATIVAN.
--- NOTE | 2019-07-07 20:00 | NUR ---
Pt resting quietly on bed. easy respirations. ventilator settings per orders. IV infusions per orders. tube feeding via OG tube. no abnormal behaviors at this time. IV sites patent no signs of infection. no edema lower extremities. soft wrist restraints noted to avoid extubation. bowel sounds x 4 tube 24 at lip. clear secretion. rivera catheter in placed draining light green to yellow urine.
[2019-07-07 20:15] LABS: BILIRUBIN 2+ (NEGATIVE); BLOOD TRACE-INTACT (NEGATIVE); CLARITY SL CLOUDY (CLEAR); COLOR GREEN (YELLOW); GLUCOSE NEGATIVE (NEGATIVE); KETONE NEGATIVE (NEGATIVE); LEUKO ESTERASE NEGATIVE (NEGATIVE); NITRITE NEGATIVE (NEGATIVE); PH 6.5 (5.0-9.0); SPECIFIC GRAVITY 1.025 (1.005-1.030)
--- NOTE | 2019-07-07 20:15 | NUR ---
Hydroxizine via OGT for agitation
[2019-07-07 20:22] LABS: BACTERIA 1+; MUCOUS 1+; RBC TNTC rbc/hpf (0-2)
--- NOTE | 2019-07-07 20:30 | NUR ---
Versed 5mg give IV push for agitation prior to bed bath.
--- NOTE | 2019-07-07 20:45 | NUR ---
MEDICATIONS EFFECTIVE. PT RESTING CALM AND COOPERATIVE. BED BATH GIVEN WITH LINEN CHANGE.
--- NOTE | 2019-07-07 22:16 | NUR ---
DR BABCOCK NOTIFIED OF PT BP'S AND URINARY OUTPUT. ORDERS RECEIVED.
--- NOTE | 2019-07-07 22:53 | NUR ---
PT CONTINUES TO RECEIVE IV BOLUS ORDERED AND WAS GIVEN VERSED AT 2240 AND ATIVAN AT 2250 FOR AGITATION, THRASHING, AND BITING ON ETT.
--- NOTE | 2019-07-07 23:14 | NUR ---
MEDICATIONS EFFECTIVE. PT IS CALM, BODY RELAXED.
[2019-07-08] VITALS (40 sets, daily range): BP systolic 88–143; BP diastolic 33–79
--- NOTE | 2019-07-08 02:10 | NUR ---
VERSED GIVEN AT 0040 AND 0200 FOR AGITATION EFFECTIVE...PT CALM.
--- NOTE | 2019-07-08 04:12 | NUR ---
ATIVAN AT 0345 FOR RECURRING RESTLESSNESS WAS EFFECTIVE....EYES CLOSED, BODY RELAXED.
[2019-07-08 04:28] LABS: BASO % 0.3 % (0.0-1.0); EOS # 0.2 10*3/uL (0.0-0.4); HEMATOCRIT 34.8 % (42.0-52.0); HEMOGLOBIN 11.5 g/dl (14.0-18.0); LYMPH % 26.8 % (27.0-41.0); MEAN CORPUSCULAR HGB 30.7 pg (27.0-31.0); MEAN PLATELET VOLUME 11.5 fl (9.6-12.3); MONO # 0.7 10*3/uL (0.1-1.0); MONO % 8.6 % (3.0-9.0); NEUT # 4.6 10*3/uL (2.3-7.9); PLATELET COUNT AUTOMATED 158 10*3/uL (130-400); RED BLOOD COUNT 3.74 10*6/uL (4.50-5.90); RED CELL DISTRI WIDTH 13.4 % (0-14.5); WHITE BLOOD COUNT 7.6 10*3/uL (4.8-10.8)
[2019-07-08 04:44] LABS: ALKALINE PHOSPHATASE 51 U/L (45-117); BUN 10 mg/dl (7-24); CHLORIDE 114 mmol/L (98-107); CREATININE 0.64 mg/dL (0.70-1.30); PHOSPHOROUS 3.3 mg/dL (2.5-4.9); POTASSIUM 3.8 mmol/L (3.5-5.1); SGOT/AST 18 IU/L (3-35); SGPT/ALT 47 U/L (12-78); SODIUM 145 mmol/L (136-145); TOTAL PROTEIN 6.3 gm/dL (6.4-8.2)
--- NOTE | 2019-07-08 05:22 | NUR ---
PT MEDICATED WITH VERSED 5MG IV FOR AGITATION. PULLING UP IN BED PULLING AGAINST WRIST RESTRAINTS. DIPRIVAN GTT CONTINUES AT 40MCG/KG/MIN.
--- NOTE | 2019-07-08 08:55 | NUR ---
PT MEDICATED WITH VERSED 5MG PER DR ORDERS FOR AGITATION AND RESTLESSNESS WHILE ON VENT WITH DIPRIVAN INFUSING ALSO.
--- NOTE | 2019-07-08 11:57 | NUR ---
DR HADDAD NOTIFIED OF PT TEMP OF 101.2.
--- NOTE | 2019-07-08 14:23 | NUR ---
PT NEEDING FREQUENT VERSED ALONG WITH DIPRIVAN GTT TO KEEP HIM CALM AND SAFE.
--- NOTE | 2019-07-08 14:57 | NUR ---
PT MEDICATED WITH ATIVAN 1MG IV FOR RESTLESSNESS AND AGITATION.
--- NOTE | 2019-07-08 16:06 | NUR ---
DR WESLEY IN [facility] AND AWARE OF PT'S TEMP OF 102.4 AND HYPOTENSION.
--- NOTE | 2019-07-08 16:07 | NUR ---
RECTAL TYLENOL GIVEN FOR TEMP OF 102.4.
--- NOTE | 2019-07-08 17:59 | NUR ---
DR DOWNEY NOTIFIED OF CPK, PT AGITATION, OTHER ORDERS, LEVOPHED AT 2.5MCG/MIN AND BP'S. NEW ORDERS RECEIVED. PROPOFOL CONTINUES AT 50MCG.
--- NOTE | 2019-07-08 18:07 | NUR ---
DR BURRIS'S ANSWERING SERVICE NOTIFIED OF CONSULT....AWAITING RETURN CALL.
--- NOTE | 2019-07-08 18:30 | NUR ---
THIRD DOSE OF VERSED Q20, MOTRIN, ATIVAN 2MG,ROBAXIN ORDERED FOR SEDATION/PAIN.
--- NOTE | 2019-07-08 19:21 | NUR ---
TO CT AND BACK. PT HAD A FEW PERIODS OF AGITATION BY PULLING AT RESTRAINTS AND THRASHING HEAD, BUT TOLERATED BETTER THAN ANTICIPATED.
--- NOTE | 2019-07-08 19:31 | NUR ---
LEVOPHED TITRATED DOWN TO 2MCG/MIN FOR MAP 81 125/62. PT RESTING CALMLY AT THIS TIME.
--- NOTE | 2019-07-08 19:34 | NUR ---
PT'S GRANDMOTHER CALLS IN TO TELL ME THAT SHE HEARD THAT PT HAS A FEVER AND THAT HE HAS "A BADLY INFECTED TOOTH FOR THE PAST THREE WEEKS". WILL INFORM PHYSICIAN.
--- NOTE | 2019-07-08 19:42 | NUR ---
DR ARMAS NOTIFIED OF REPORT OF INFECTED TOOTH, ALSO UPDATED ON LATEST TEMP.
--- NOTE | 2019-07-08 21:00 | NUR ---
DR YOKO ANDERSON. UPDATED ON PT CONDITION. PT IS THE CALMEST HE HAS BEEN, BODY RELAXED. VSS. BP 106/44 (66) WITH LEVOPHED AT 2 MCG/MIN.
--- NOTE | 2019-07-08 21:22 | NUR ---
EARLIER MOTRIN APPEARS TO BE EFFECTIVE POSSIBLE PAIN AND TEMP DOWN TO 98.2.
--- NOTE | 2019-07-08 21:50 | NUR ---
LEVOPHED TITRATED DOWN TO 1.5MCG/MIN FOR BP 113/54 (76). PT REMAINS CALM, BODY RELAXED.
--- NOTE | 2019-07-08 22:32 | NUR ---
DR NGUYEN CALLS IN. CONDITION DISCUSSED. NO NEW ORDERS RECEIVED. SHE STATES THEY WILL SEE HIM TOMORROW.
--- NOTE | 2019-07-08 23:18 | NUR ---
BP 114/63 (76). BATH AND BED LINEN CHANGE DONE. PT TOLERATED WELL. ADEQUATELY SEDATED. LEVOPHED TITRATED DOWN TO 1 MCG/MIN. PT AFEBRILE. ORAL CARE CONTINUES.
[2019-07-09] VITALS (84 sets, daily range): BP systolic 88–125; BP diastolic 39–82
--- NOTE | 2019-07-09 01:36 | NUR ---
PT TOLERATING TITRATION OF LEVOPHED DOWN TO 0.5MCG/MIN. PT STARTED FIDGETING MORE AND THRASHED HEAD SIDE TO SIDE WHEN I ATTEMPTED ORAL CARE THIS TIME, MEDICATED WITH MOTRIN LIQUID THIS EARLIER ADMINISTRATION APPEARED TO HAVE ASSISTED WITH HIS RECENT RELAXED, FEET CROSSED AT THE ANKLES, CALM STATUS.
--- NOTE | 2019-07-09 03:19 | NUR ---
MAPS REMAINED >65 SINCE LEVOPHED TITRATED OFF AT 0200. PT HAD BECOME AGITATED RAISING HIS HEAD, PULLING AT RESTRAINTS, AND BITING ETT & GAGGING. MEDICATED WITH ATIVAN AND VERSED AT 0250. EFFECTIVE...PT APPEARS TO BE SEDATED, BODY RELAXED.
--- NOTE | 2019-07-09 05:51 | NUR ---
ATIVAN AND VERSED GIVEN AT 0545 FOR AGITATION EFFECTIVE...PT REPOSITIONED AND BODY RELAXED. BP POST MEDICATION 91/41.
[2019-07-09 06:02] LABS: BASO % 0.2 % (0.0-1.0); EOS # 0.3 10*3/uL (0.0-0.4); EOS % 3.3 % (1.0-4.0); HEMATOCRIT 32.8 % (42.0-52.0); HEMOGLOBIN 10.8 g/dl (14.0-18.0); LYMPH # 1.9 10*3/uL (1.3-4.4); LYMPH % 22.4 % (27.0-41.0); MEAN CELL VOLUME 90.9 fl (80.0-94.0); MEAN CORPUSCULAR HGB 29.9 pg (27.0-31.0); MEAN CORPUSCULAR HGB CONC 32.9 g/dl (33.0-37.0); MEAN PLATELET VOLUME 12.2 fl (9.6-12.3); MONO # 0.6 10*3/uL (0.1-1.0); MONO % 6.9 % (3.0-9.0); NEUT # 5.6 10*3/uL (2.3-7.9); PLATELET COUNT AUTOMATED 123 10*3/uL (130-400); RED BLOOD COUNT 3.61 10*6/uL (4.50-5.90); WHITE BLOOD COUNT 8.4 10*3/uL (4.8-10.8)
--- NOTE | 2019-07-09 06:19 | NUR ---
LEVOPHED RESTARTED RE: 91/41 (58) AND 88/49 (62).
[2019-07-09 06:20] LABS: ALBUMIN 2.7 gm/dl (3.1-4.5); BUN 7 mg/dl (7-24); CHLORIDE 117 mmol/L (98-107); POTASSIUM 3.2 mmol/L (3.5-5.1); SODIUM 146 mmol/L (136-145)
[2019-07-09 06:24] LABS: ALKALINE PHOSPHATASE 47 U/L (45-117); CREATININE 0.66 mg/dL (0.70-1.30); PHOSPHOROUS 1.3 mg/dL (2.5-4.9); SGOT/AST 21 IU/L (3-35); SGPT/ALT 40 U/L (12-78); TOTAL PROTEIN 6.1 gm/dL (6.4-8.2)
--- NOTE | 2019-07-09 06:47 | NUR ---
PT MAINTAINS MAP OF >65 WITH LEVOPHED GTT AT 2MCG/MIN.
--- NOTE | 2019-07-09 07:27 | NUR ---
Shift chart check completed. Report received. Pt resting on ventilator.
[2019-07-09 07:38] LABS: ABG BASE EXCESS -0.8 mmol/L (-2.0-2.0); ARTERIAL BLOOD GAS PH 7.577 (7.35-7.45)
--- NOTE | 2019-07-09 08:00 | NUR ---
DR WESLEY NOTIFIED OF LABS -
--- NOTE | 2019-07-09 08:49 | NUR ---
MEDICATED WITH ROBAXIN, MOTRIN, BENTYL, NICOTINE PATCH, VERSED, & MAALOX. PATIENT IS A SMOKER. LAST NIGHT MYULITPLE GI ISSUES SO PRN STOMACH MEDS GIVEN.INCREASE INRESTLESSNESS WITH AM ASSESSMENT SO PRN VERSED & ROBAXIN GIVEN. GREEN URINE IN BAINS D/T DIPRIVAN.
--- NOTE | 2019-07-09 09:32 | NUR ---
RETURNED FROM RADIOLOGY AFTER CT MAXILLOFACIAL - DIPRIVAN INCREASED TO 3mcg/min FOR MAP 60
--- NOTE | 2019-07-09 10:14 | NUR ---
DR DONWEY HERE - PT EXAMINED AFTER LABS/XRAY REVIEWED. DR DOWNEY SPOKE WITH DR HADDAD WHO ALSO ROUNDED THEN DR HADDAD SPOKE WITH THE GRANDNV ABOUT LP & CONSENT OBTAINED
[2019-07-09 10:35] LABS: ABG BASE EXCESS -1.3 mmol/L (-2.0-2.0); ARTERIAL BLOOD GAS PH 7.402 (7.35-7.45)
--- NOTE | 2019-07-09 11:28 | NUR ---
DR DOWNEY CALLED WITH ABG RESULTS
--- NOTE | 2019-07-09 12:58 | NUR ---
DR SMITH OFFICE MESSAGE LEFT ABOUT CONSULT
--- NOTE | 2019-07-09 13:29 | NUR ---
ATTEMPTING TO MAKE ARRANGEMENTS FOR LUMBAR PUNCTURE AT BEDSIDE
--- NOTE | 2019-07-09 14:13 | NUR ---
PER DR SMITH HE WILL NOT BE ABLE TO MAKE IT IN TO SEE THE PATIENT
--- NOTE | 2019-07-09 14:22 | NUR ---
ANESTHESIOLOGY WILL PERFORM LUMBAR PUNCTUR - VERSED GIVEN TO KEEP PATIENT CALM & PEACEFUL
[2019-07-09 16:07] LABS: MYCOPLASMA PNEUMONIAE IGG 215 U/mL (0-99); MYCOPLASMA PNEUMONIAE IGM <770 U/mL (0-769)
[2019-07-09 16:20] LABS: CSF RBC < 1000 /uL; CSF WBC 1 /uL
--- NOTE | 2019-07-09 17:30 | NUR ---
ROBAXIN & TYLENOL FOR RESTLESSNESS. DULCOLAX SUPPOSITORY FOR NO BOWEL MOVEMENT IN >4 DAYS
[2019-07-09 17:42] LABS: CLARITY CLEAR; COLOR COLORLESS
--- NOTE | 2019-07-09 18:00 | NUR ---
BENADRYL GIVEN FOR RESTLESSNESS -
--- NOTE | 2019-07-09 19:38 | NUR ---
NO RESPONSE FROM DULCOLAX AT THIS TIME
--- NOTE | 2019-07-09 20:25 | NUR ---
194 RESTING IN BED IN SUPINE POSITION. HOB ELEVATED. SIDE RAILS UP X'S 2. ET SECURE TO VENT. SUCTIONED ORALLY AND VIA ET. SEE INTERVENTION SCREEN. PULSE OX 100% ON 30% FIO2. OGT INTACT. PLACEMENT CONFIRMED WITH AIR BOLUS/AUSCULTATION. TF MAINTAINED. REMAINS NPO. ORAL AND EYE CARE DONE. WRIST RESTRAINTS INTACT BILALTERALLY. CIRCULATION ADEQUATE. BAINS PATENT AND DRAINING GREEN TINGED URINE. NO DISTRESS NOTED. 1999 BECOMING AGITATED. VERSED 5MG IV AND EFFECTIVE.
--- NOTE | 2019-07-09 20:55 | NUR ---
2039 COMPLETE BED BATH GIVEN AND LINENS CHANGED. SMALL SMEAR OF BM NOTED ON INCONTINENT PAD.
--- NOTE | 2019-07-09 21:56 | NUR ---
5 RESTLESS AND TRYING TO SIT UP IN THE BED. VERSED 5MG IV AND EFFECTIVE.
--- NOTE | 2019-07-09 22:42 | NUR ---
2235 VERSED IV FOR AGITATION AND EFFECTIVE IMMEDIATELY.
--- NOTE | 2019-07-09 23:46 | NUR ---
2330 ATIVAN IV FOR AGITATION. WILL MONITOR.
[2019-07-10] VITALS (34 sets, daily range): BP systolic 103–131; BP diastolic 48–85
--- NOTE | 2019-07-10 00:26 | NUR ---
0010 EARLIER ATIVAN NOT EFFECTIVE. VERSED 5MG IV FOR AGITATION. INCONTINENT OF LARGE AMOUNT GREEN LIQUID STOOL. LAURA CARE DONE AND LINENS CHANGED. 0025 VERSED EFFECTIVE.
--- NOTE | 2019-07-10 02:21 | NUR ---
0213 VERSED 5MG IV FOR RESTLESSNESS AND EFFECTIVE.
--- NOTE | 2019-07-10 04:14 | NUR ---
0340 MOTRIN GIVEN VIA OGT FOR TEMP OF 100.9. WILL MONITOR.
--- NOTE | 2019-07-10 04:44 | NUR ---
0425 VERSED 5MG IV FOR AGITATION AND RESTLESSNESS. EFFECTIVE.
[2019-07-10 04:59] LABS: BASO % 0.3 % (0.0-1.0); EOS # 0.4 10*3/uL (0.0-0.4); EOS % 4.4 % (1.0-4.0); HEMATOCRIT 34.5 % (42.0-52.0); HEMOGLOBIN 11.4 g/dl (14.0-18.0); LYMPH # 1.6 10*3/uL (1.3-4.4); LYMPH % 16.6 % (27.0-41.0); MEAN CELL VOLUME 93.2 fl (80.0-94.0); MEAN CORPUSCULAR HGB 30.8 pg (27.0-31.0); MEAN PLATELET VOLUME 11.9 fl (9.6-12.3); MONO # 0.5 10*3/uL (0.1-1.0); MONO % 5.5 % (3.0-9.0); NEUT # 7.1 10*3/uL (2.3-7.9); NEUT % 72.9 % (47.0-73.0); PLATELET COUNT AUTOMATED 135 10*3/uL (130-400); RED CELL DISTRI WIDTH 13.5 % (0-14.5); WHITE BLOOD COUNT 9.7 10*3/uL (4.8-10.8)
[2019-07-10 05:15] LABS: ALBUMIN 2.8 gm/dl (3.1-4.5); ALKALINE PHOSPHATASE 47 U/L (45-117); BUN 3 mg/dl (7-24); CHLORIDE 117 mmol/L (98-107); CREATININE 0.65 mg/dL (0.70-1.30); PHOSPHOROUS 3.2 mg/dL (2.5-4.9); POTASSIUM 3.9 mmol/L (3.5-5.1); SGOT/AST 25 IU/L (3-35); SGPT/ALT 40 U/L (12-78); SODIUM 144 mmol/L (136-145); TOTAL PROTEIN 6.3 gm/dL (6.4-8.2)
--- NOTE | 2019-07-10 05:42 | NUR ---
0540 VERSED 5MG IV FOR CONT RESTLESSNESS AND AGITATION. PT WAS TRYING TO SIT UP. EFFECTIVE.
--- NOTE | 2019-07-10 06:08 | NUR ---
DIPRIVAN, LEVOPHED AND NSS CONT. Q15MIN BP'S CONT. ET SECURE TO VENT. PULSE OX 99%. WRIST RESTRAINTS REMAIN INTACT BILATERALLY. TF CONT. BAINS PATENT. CONDITION GUARDED.
--- NOTE | 2019-07-10 06:47 | NUR ---
VERSED IV FOR AGITATION. TRYING TO SIT UP IN BED AFTER PORTABLE CXR. EFFECTIVE.
--- NOTE | 2019-07-10 07:15 | NUR ---
JACKI MARTINEZ DC'D AT THIS TIME.
[2019-07-10 07:16] LABS: ABG BASE EXCESS 0.7 mmol/L (-2.0-2.0); ARTERIAL BLOOD GAS PH 7.466 (7.35-7.45)
--- NOTE | 2019-07-10 07:45 | NUR ---
DR DOWNEY MADE AWARE OF ABG RESULTS AND THAT PT IS FOLLOWING COMMANDS SINCE SEDATIONS STOPPED. NEW ORDER TO EXTUBATE PT RECIEVED.
--- NOTE | 2019-07-10 08:00 | NUR ---
Patient extubated on physician's order. Room Air POX 97%. Pulse oximeter on with alarms set at 10% below patient's baseline. Pharyngeal reflex present prior to extubation. Patient encouraged to cough and deep breathe. Patient observed for skin color and temperature, monitor rhythm, respiratory rate and effort, and level of consciousness. NPO for 4 hours. Patient tolerated procedure WELL. MARTINA ESPARZA J
--- NOTE | 2019-07-10 08:25 | NUR ---
PT AWAKE AND FOLLOWING COMMANDS. REMAINS DISORIENTED AT TIMES. WANTING TO CALL FAMILY TO COME GET HIM AND GO HOME. REORIENTED FREQUENTLY. VSS. NSR RATE 60'S. POX 97% ON ROOM AIR. SBP 131.
--- NOTE | 2019-07-10 09:17 | NUR ---
DR HADDAD IN TO SEE PT. PT CONTIUOUSLY WANTING TO USE THE PHONE TO CALL HIS MOTHER AND GRANDMOTHER SO HE CAN GO HOME. BOTH PHYSICIAN AND NURSE EXPLAINED THAT IMPORTANCE OF STAYING FOR COMPLETE TREATMENT. LEVOPHED GTT DECREASED TO 2MCG/MIN AT THIS TIME. BP 131/74. NSR RATE 77.
--- NOTE | 2019-07-10 09:36 | NUR ---
PT C/O FEELING VERY ANXIOUS ABOUT HAVING TO STAY ANOTHER DAY IN THE HOSPITAL. REQUESTING SOMETHING FOR ANXIETY. MEDICATED WITH ATIVAN AT THIS TIME. PT REPOSITIONS HIMESELF AND LIGHTS TURNED DOWN TO FACILITATE REST.
--- NOTE | 2019-07-10 10:31 | NUR ---
DR DOWNEY IN TO SEE PT. ORDER TO DC LEVOPHED GTT.
--- NOTE | 2019-07-10 11:59 | NUR ---
PT ASSISTED UP IN TO CHAIR ON MENTAL ASSESSMENT SCREEN PT WAS NOT ABLE TO ANSWER NUMEROUS QUESTIONS APPROPRIATLY.
--- NOTE | 2019-07-10 13:09 | NUR ---
PT CONTINUES TO BE ANXIOUS AND WANTING TO BE DISCHARGED TODAY. BECOMING AGITATED AT TIMES. IV ATIVAN 1MG GIVEN. PT ASKING ABOUT GETTING SUBUTEX SINCE HE CAME IN [place] AND DID NOT FINISH THAT PROTOCOL. I CALLED DR WESLEY AND HE WILL LET US KNOW.
--- NOTE | 2019-07-10 14:00 | NUR ---
PT ALERT AND ORIENTED AT THIS TIME. ANSWERING APPROPRIATLY.
--- NOTE | 2019-07-10 14:03 | NUR ---
PT CONTINUES TO REQUEST TO LEAVE STATING HE WANTS TO LEAVE NOW. DR WESLEY NOTIFIED AND COMING TO SPEAK WITH PT.
--- NOTE | 2019-07-10 14:14 | NUR ---
DR WESLEY CAME TO SPEAK WITH PT AND HIS SISTER WHO IS AT BEDSIDE. PT AGREED AT THIS TIME TO STAY UNTIL HIS MOM GETS HERE IN AN HOUR. IV ATIVAN 1MG GIVEN PER DR ECHEVARRIA.
--- NOTE | 2019-07-10 14:32 | NUR ---
PT STATES NOW THAT HE DOES NOT WANT TO WAIT FOR HIS MOTHER ANY LONGER AND IS LEAVING NOW. DR WESLEY NOTIFIED THAT PT IS LEAVING AMA. PT'S SISTER BETTY WITH PT AND WILL BE DRIVING HIM TO HER MOTHERS HOUSE FROM HERE SHE STATES.
--- NOTE | 2019-07-10 14:33 | NUR ---
Patient signed out AMA. Patient encouraged to stay and advised of possible consequences of premature discharge. Physician DR WESLEY and calender supervisor ANH GODOY notified. Patient instructed what to do regarding care post-departure from the hospital; emergency phone numbers provided. Patent was accompanied by SISTER BETTY. MARTINA ESPARZA
[2019-07-10 15:09] LABS: ACID FAST SPEC PROCESSING Direct Inoculation (.)
[2019-07-11 13:06] LABS: HSV-2 DNA Negative (Negative)
[2019-07-12 00:09] LABS: ADENOVIRUS Negative (Negative); INFLUENZA A Negative (Negative); INFLUENZA B Negative (Negative); METAPNEUMOVIRUS Negative (Negative); PARAINFLUENZA 1 Negative (Negative); PARAINFLUENZA 2 Negative (Negative); PARAINFLUENZA 3 Negative (Negative); RHINOVIRUS Negative (Negative); RSV A Negative (Negative); RSV B Negative (Negative)
[2019-07-12 16:06] LABS: MYCOPLASMA PNEUMONIAE IGG 240 U/mL (0-99); MYCOPLASMA PNEUMONIAE IGM <770 U/mL (0-769)
[2019-07-13 22:05] LABS: PARAINFLUENZA 1 CF 1:32 (Neg:<1:8); PARAINFLUENZA 2 CF 1:16 (Neg:<1:8); PARAINFLUENZA 3 CF 1:32 (Neg:<1:8)
== END 2019-07-10 14:45 | disposition left against medical advice (07) | DRG 812 ==
LOC: ICCU 11:13 → 5E 11:13 → ICCU 07-06 13:09
PROVIDERS: Internal Medicine; Internal Medicine Critical Care Medicine; Registered Nurse; ADMIT Internal Medicine
PROC: 02H633Z Insertion of Infusion Device into Right Atrium, Percutaneous Approach (ICD-10-PCS; 2019-07-06)
PROC: B548ZZA Ultrasonography of Superior Vena Cava, Guidance (ICD-10-PCS; 2019-07-06)
PROC: 0BH17EZ Insertion of Endotracheal Airway into Trachea, Via Natural or Artificial Opening (ICD-10-PCS; 2019-07-07)
PROC: 5A1945Z Respiratory Ventilation, 24-96 Consecutive Hours (ICD-10-PCS; 2019-07-07)
PROC: 009U3ZX Drainage of Spinal Canal, Percutaneous Approach, Diagnostic (ICD-10-PCS; principal; 2019-07-09)
DX: T40.2X1A Poisoning by other opioids, accidental (unintentional), initial encounter (principal); A41.9 Sepsis, unspecified organism; F11.23 Opioid dependence with withdrawal; F10.239 Alcohol dependence with withdrawal, unspecified; G25.81 Restless legs syndrome; J96.00 Acute respiratory failure, unspecified whether with hypoxia or hypercapnia; F31.9 Bipolar disorder, unspecified; F41.1 Generalized anxiety disorder; B19.20 Unspecified viral hepatitis C without hepatic coma; E87.3 Alkalosis; K04.7 Periapical abscess without sinus; E87.8 Other disorders of electrolyte and fluid balance, not elsewhere classified; T40.1X1A Poisoning by heroin, accidental (unintentional), initial encounter; Z53.29 Procedure and treatment not carried out because of patient's decision for other reasons; F17.210 Nicotine dependence, cigarettes, uncomplicated; Z83.3 Family history of diabetes mellitus; Z86.14 Personal history of Methicillin resistant Staphylococcus aureus infection; Z81.8 Family history of other mental and behavioral disorders; Z79.899 Other long term (current) drug therapy; Y92.89 Other specified places as the place of occurrence of the external cause